=== PATIENT | female | born 1965 | race American Indian/Alaskan Native ===

== ENCOUNTER 2022-03-26 16:09 | Outpatient (CLI) | payer BC, MEDICAID, SELFPAY ==
[2022-03-26 16:38] LABS: Basophils # 0.1 10^3/uL (0.0-0.1); Basophils % 1.1 %; Eosinophils # 0.4 10^3/uL (0.0-0.8); Eosinophils % 6.9 %; Hematocrit 31.9 % (37.0-47.0); Hemoglobin 10.5 g/dL (11.5-15.3); Mean Corpuscular HGB Conc 32.9 g/dL (30.0-36.0); Mean Corpuscular Hemoglobin 29.7 pg (28.0-34.0); Mean Corpuscular Volume 90.4 fl (81-99); Mean Platelet Volume 11.3 fL (7.4-10.4); Monocytes # 0.5 10^3/uL (0.2-0.9); Monocytes % 8.2 %; Neutrophils # 3.14 10^3/uL (1.8-7.7); Neutrophils % 51.6 %; Nucleated Red Blood Cells % 0 %; Platelet Count 182 10^3/cmm (130-400); Red Blood Count 3.53 10^6/uL (4.1-5.3); Red Cell Distribution Width 13.2 % (12.1-15.1); White Blood Count 6.1 10^3/uL (4.0-10.0)
[2022-03-26 16:56] LABS: Alanine Aminotransferase 10 U/L (0-33); Albumin Level 4.3 g/dL (3.5-5.2); Alkaline Phosphatase 71 U/L (35-105); Anion Gap 15.7 (5-19); Aspartate Amino Transferase 15 U/L (0-32); Blood Urea Nitrogen 29 mg/dL (6-20); Calcium 9.4 mg/dL (8.5-10.5); Carbon Dioxide 24 mmol/L (22-29); Chloride 100 mmol/L (98-107); Globulin 2.8 g/dL (1.3-4.6); Glomerular Filtration Rate 33.3 mL/min (90-130); Glucose 96 mg/dL (65-115); Lipase 50 U/L (13-60); Osmolality Calculated 286 mOsm/kg (285-295); Potassium 4.7 mmol/L (3.5-5.1); Sodium 135 mmol/L (136-145); Total Bilirubin 0.2 mg/dL (0.15-1.2); Total Protein 7.1 g/dL (6.6-8.7)
== END 2022-03-26 16:10 | disposition home or self-care (01) ==
PROVIDERS: PCP Family Medicine; Visit Provider Family Medicine
DX: R10.9 Unspecified abdominal pain (principal)
CPT/HCPCS: 80053; 83690; 85025

== ENCOUNTER 2022-04-23 06:01 | Outpatient (CLI) | payer BC, MEDICAID, SELFPAY ==
--- NOTE | 2022-04-23 | US_ITS ---
WS: [id number] RIGHT UPPER QUADRANT ULTRASOUND HISTORY: RUQ PAIN COMPARISON: None available. Liver: 17.9 cm in length. Liver is top normal size. Normal vascularity. No mass or bile duct dilatati on. Portal Vein: Normal hepatopetal flow with monophasic waveform. Gallbladder: Normally distended gallbladder. The wall of the gallbladder is mildly echogenic but no s hadowing. Stones are present within the gallbladder. No evidence for acute pericholecystic fluid or w all thickening. Gallbladder wall measures 2 mm. CBD: 0.5 cm Pancreas: Normal size and echogenicity. Right kidney: 10.2 cm in length. Normal size and echogenicity. No hydronephrosis or mass. Aorta and IVC: Unremarkable abdominal aorta and IVC. No ascites. US/US abdomen limited [id number] IMPRESSION: 1. Cholelithiasis without evidence for acute cholecystitis. 2. No bile duct dilatation.
== END 2022-04-23 06:02 | disposition home or self-care (01) ==
LOC: RAD 06:02
PROVIDERS: PCP Family Medicine; Visit Provider Family Medicine
DX: R10.11 Right upper quadrant pain (principal); K80.20 Calculus of gallbladder without cholecystitis without obstruction
CPT/HCPCS: 76705

== ENCOUNTER 2022-05-28 05:42 | Day surgery (SDC) | payer BC, MEDICAID, SELFPAY ==
[2022-05-27 15:54] VITALS: BMI 29.7
[2022-05-28] VITALS (11 sets, daily range): BP systolic 122–165; BP diastolic 58–78; PULSE 66–98; RESP 14–24; TEMP 36.1–37.2; O2SAT 95–97; BMI 29.5
--- NOTE | 2022-05-28 06:08 | W.PM.OPSUD ---
Surgery/Procedure H&P Update DATE OF PROCEDURE: May 28, 2022 DATE H&P PERFORMED: 05/06/22 H&P UPDATE INFORMATION: I have reviewed H&P completed within last 30 days, I have examined patient prior to procedure and Changes to prior documentation as noted here CHANGES TO PREVIOUS DOCUMENTATION: Patient was kept on liquid protein diet and she did lose 5 to 6 pounds PREOP DIAGNOSIS: Symptomatic cholelithiasis PRIMARY INDICATION FOR PROCEDURE: The same PLANNED PROCEDURE: Operation Date: 05/28/22 07:00 Proposed Procedures p Laparoscopic Cholecystectomy 87004,K80.0(Not Applicable) - Adolfo Bach MD
[2022-05-28] MEDS: sodium chloride 0.9% 1,000 ML 30 ML IV (06:31)
[2022-05-28] MEDS: acetaminophen 1,000 MG/100 ML PIGGYBACK 400 MG IV (06:31)
[2022-05-28] MEDS: heparin 5,000 unit/mL INJ 1 mL 2000 UNIT SUBCUT (06:31)
[2022-05-28 06:35] LABS: Glucose Point of Care 113 mg/dL (70-110)
--- NOTE | 2022-05-28 06:40 | ANES.PREANE2 ---
Pre-Anesthetic Assessment Height/Weight: Height 1.68 m Weight 83.007 kg Temp Pulse Resp BP Pulse Ox O2 Del Method 98.9 F 66 14 122/73 96 05/28/22 06:09 05/28/22 06:09 05/28/22 06:09 05/28/22 06:09 05/28/22 06:09 05/28/22 06:13 Preop Diagnosis: Symptomatic cholelithiasis Operation Date: 05/28/22 07:00 Proposed Procedures p Laparoscopic Cholecystectomy 69750,K80.0(Not Applicable) - Adolfo Bach MD Familial anesthetic complications: None Was Beta Carlos taken within 24 hours: N/A Was Clonidine taken within 24 hours: N/A Last intake: Intake Last Liquid Date 05/27/22 Last Liquid Time 21:00 Last Solid Date 05/27/22 Last Solid Time 18:00 Social Tobacco and No alcohol Exam alert, oriented x 3, clear to auscultation bilaterally and regular rate & rhythm Airway Mallampati: Class I Dentition: partials CV/HEM Hypertension Hepatic fatty liver GI Gastroesophageal Reflux Disease (occassional) Metabolic Diabetes Mellitus and Hyperlipidemia Anesthetic Plan ASA status: 2 Anesthesia: General Risk of > 500 ml blood loss (7ml/kg in children): No Medications/Allergies Home Medications Medication Instructions Recorded Confirmed Last Taken Type alogliptin 25 mg tablet (Nesina) 25 mg PO DAILY 05/06/22 05/28/22 05/27/22 History amlodipine 10 mg tablet 10 mg PO DAILY 05/06/22 05/28/22 05/27/22 History aspirin 81 mg capsule 81 mg PO DAILY 05/06/22 05/27/22 05/13/22 History atorvastatin 20 mg tablet 20 mg PO DAILY 05/06/22 05/28/22 05/27/22 History calcium carbonate 600 mg-vitamin 1 tab PO DAILY 05/06/22 05/28/22 05/27/22 History D3 5 mcg (200 unit) tablet gabapentin 300 mg capsule 300 mg PO TID PRN Pain 05/06/22 05/28/22 05/27/22 History magnesium oxide 400 mg PO DAILY 05/06/22 05/28/22 05/27/22 History metformin 1,000 mg tablet 1,000 mg PO BID 05/06/22 05/28/22 05/27/22 History sertraline 100 mg tablet 100 mg PO DAILY 05/06/22 05/28/22 05/27/22 History trazodone 50 mg tablet 75 mg PO DAILY 05/06/22 05/28/22 05/27/22 History Allergies Allergy/AdvReac Type Severity Reaction Status Date / Time No Known Allergies Allergy Verified 05/27/22 15:51 Current Medications Generic Name Dose Route Start Last Admin Trade Name Freq PRN Reason Stop Dose Admin Sodium Chloride 1,000 mls @ 30 mls/hr 05/28/22 06:00 05/28/22 06:31 Sodium Chloride 0.9% IV 05/29/22 05:59 30 mls/hr .Q24H ARUN Administration PFSH Anesthesia Social History Smoking and tobacco status: current every day smoker Data Anesthesia Cardiac Studies: No Data to Display
[2022-05-28] MEDS: ampicillin-sulbactam 3 GM in sodium chloride 0.9% (plus) 50 ML IV (07:00)
[2022-05-28] MEDS: lidocaine 1% INJ 50 mL 10 ML INJECTION (07:25)
--- NOTE | 2022-05-28 08:49 | P.OP_ITS ---
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 Time-out was done verifying the patient's name/date of /planned procedure and destination after the procedure, all were in agreement. SCDs confirmed to be functioning, preoperative antibiotics administered per protocol, and beta shelly protocol was confirmed. Patient was appropriately secured to the table, footboard was applied to the OR table, before prep and drape anesthesia was asked to tilt the table back and forth to make sure that the patient is appropriately secured and she was. Prep and drape of the abdomen was done under the usual sterile technique, followed by that supraumbilical skin incision,skin incision was done by a 15 blade knife, and stay sutures were applied to the fascia and Blount trocar technique was used to enter the abdominal without injuring any abdominal viscera, started by low flow gas insufflation followed by a high flow, started with a 10 mm laparoscope and under direct vision there was no evidence of any injuries, the scope then switched to a 30? ,10 millimeter scope and under direct visualization 5 millimeter trocar was inserted in the epigastric region followed by two 5 mm trocars were inserted in the right upper quadrant that was done after injection of local lidocaine 2% at all incision sites. Gallbladder showed chronic calculus cholecystitis and Fatty enlarged Liver inspite of having the patient on liquid protein diet prior to Surgery. Patient was then positioned in the head up and tilted to the left. Ratcheted forceps were introduced into the lateral most 5mm port and was applied unto the fundus of the gallbladder cephalad and using Bullet forceps the infundibulum of the gallbladder was retracted laterally. Using [place] forceps then L-hook cautery to dissect the peritoneum overlying the Calot's triangle which was then opened medially and laterally until the cystic duct and the cystic artery were skeletonized. Dissection was carried along the body of the gallbladder and after ensuring critical view of safety was identfied. Cystic duct and cystic artery where seen connected to the gallbladder. Clips were applied on the cystic duct towards the common bile duct 1 towards the gallbladder then divided is in sharp scissors, 2 clips were then applied onto the cystic artery and 1 towards the gallbladder and divided by sharp scissors. I did appreciate some stones coming from the cystic duct stump that was flushed and prior to application of the clips I was able to milk any residues in the cystic duct. After application of the 5 mm clips seem that they are not crossing all the way so I elected to put Endoloop PDS x2. Without encroaching on the common bile duct. Dissection was then carried along of the gallbladder from the gallbladder fossa using cautery as well as sharp dissection with heat energy. The gallbladder then was dissected out from the gallbladder fossa totally , cholecystectomy was then achieved and was placed in an Endo Catch bag and then retrieved from the Blount trocar site under direct visualization using a 5 mm 30? scope through the epigastric trocar, specimen was then passed to the circu [place] [place] nurse to go for permanent pathology,irrigation and hemostasis was done to the gallbladder fossa after hemostasis was secured, and pieces of Surgicel were placed in the gallbladder fossa. Final survey laparoscopy was done that showed no injuries.Thorough and copious irrigation followed by suction was obtained. The supraumbilical fascial defect was then closed using interrupted number one P DS sutures using a fascial closure device ;Rick Jaramillo under direct visualization following that Gas was allowed to deflate,Trocars were then taken out under direct vision there was no evidence of bleeding. Specimen was passed to the circulating nurse for permanent pathology. No drains were placed and the supraumbilical incision as well as all trocar sites were closed using skin brian to approximate the skin edges of the incisions , dressing was applied in the form of Band-Aids and the patient patient got extubated and was taken to recovery area in a stable condition. Count of sponges,needles and instruments were completed at the end of the procedure I was present for the whole entire procedure.
[2022-05-28] MEDS: fentaNYL 50 mcg/mL INJ 2mL IVP (09:12)
[2022-05-28] MEDS: HYDROcodone-acetaminophen 5-325 mg Tablet 1 TAB PO (09:55)
--- NOTE | 2022-05-28 13:13 | ANE.PACU2 ---
Inpatient post-anesthesia follow up: Airway intact: Yes Vital signs: Temperature 97.4 F Pulse Rate 84 Respiratory Rate 18 Blood Pressure 149/68 Pulse Oximetry 96 Oxygen Delivery Me thod Room Air Oxygen Flow Rate Fraction of Inspir ed Oxygen Hydration adequate: Yes Nausea and vomiting: No Pain level: 1 Mental status: Baseline
== END 2022-05-28 10:18 | disposition home or self-care (01) ==
PROVIDERS: PCP Family Medicine; Visit Provider Surgery
PROC: 0FT44ZZ Resection of Gallbladder, Percutaneous Endoscopic Approach (ICD-10-PCS; CPT 47562; principal; 2022-05-28 07:00)
DX: K80.10 Calculus of gallbladder with chronic cholecystitis without obstruction (principal); K76.0 Fatty (change of) liver, not elsewhere classified; K21.9 Gastro-esophageal reflux disease without esophagitis; I10 Essential (primary) hypertension; E11.9 Type 2 diabetes mellitus without complications; E78.5 Hyperlipidemia, unspecified; Z79.82 Long term (current) use of aspirin; F17.210 Nicotine dependence, cigarettes, uncomplicated
CPT/HCPCS: 47562; 36416; 82962; 88304; J0131; J0295; J1100; J1644; J2405; J2704; J3010; J3490; J7030

== ENCOUNTER 2022-08-23 12:26 | Outpatient (CLI) | payer BC, MEDICAID, SELFPAY ==
--- NOTE | 2022-08-23 12:47 | MM_ITS ---
WS: [id number] BILATERAL 3D TOMOSYNTHESIS DIGITAL SCREENING MAMMOGRAPHY WITH CAD CLINICAL INFORMATION: screening HISTORY: Screening mammogram. No current complaints. COMPARISON: 2020 TECHNIQUE: Bilateral CC and MLO views. FINDINGS: Scattered fibroglandular densities bilaterally. Lucent centered calcifications RIGHT breast. Cluster s of calcifications in the outer LEFT breast some in a linear branching pattern. Recommend further ev aluation with spot magnification views. In addition, asymmetric density measuring 6 mm central LEFT breast along the posterior nipple line mi d depth appears more prominent compared to previous. This is best seen on the MLO view. Recommend spo t compression views and ultrasound if persistent. RIGHT breast is unremarkable. MM/[place] [id number] IMPRESSION: BI-RADS: 0-Incomplete: Need additional imaging evaluation FOLLOW UP: Need Additional Imaging Recommend spot magnification views outer LEFT breast calcifications. Recommend spot compression views LEFT breast central asymmetry and ultrasound i f persistent.
== END 2022-08-23 12:27 | disposition home or self-care (01) ==
PROVIDERS: PCP Nurse Practitioner Family; Visit Provider Nurse Practitioner Family
DX: Z12.31 Encounter for screening mammogram for malignant neoplasm of breast (principal)
CPT/HCPCS: 77063; 77067

== ENCOUNTER 2022-09-16 13:58 | Outpatient (CLI) | payer BC, MEDICAID, SELFPAY ==
--- NOTE | 2022-09-16 14:03 | MM_ITS ---
WS: [id number] LEFT 3D TOMOSYNTHESIS DIGITAL MAMMOGRAPHY WITH CAD CLINICAL INFORMATION: ABNORMAL MAMMO HISTORY: COMPARISON: None. TECHNIQUE: 3 views of the left breast were obtained. FINDINGS: Scattered fibroglandular densities of the left breast. Vascular calcification. Previously described s mall nodular density compresses out on the spot compression views. Clustered punctate calcifications outer LEFT breast are again seen. Spot magnification views obtained . Some of these appear to be vascular calcifications. Distribution is similar in appearance to October 31, 2020. Recommend 6 month follow-up LEFT breast diagnostic mammography with spot magnification view s. No other suspicious findings. MM/[place] [id number] IMPRESSION: BI-RADS: 3-Probably Benign FOLLOW UP: 6 Month Follow-up Recommend 6 month follow-up LEFT breast diagnostic mammography with spot magnif ication views of the outer breast calcifications.
== END 2022-09-16 13:59 | disposition home or self-care (01) ==
LOC: RAD 13:59
PROVIDERS: PCP Nurse Practitioner Family; Visit Provider Nurse Practitioner Family
DX: R92.8 Other abnormal and inconclusive findings on diagnostic imaging of breast (principal); R92.1 Mammographic calcification found on diagnostic imaging of breast
CPT/HCPCS: 77061; G0279

== ENCOUNTER 2023-04-03 07:36 | Outpatient (CLI) | payer BC, MEDICAID, SELFPAY ==
--- NOTE | 2023-04-03 | MM_ITS ---
WS: [id number] LEFT 3D TOMOSYNTHESIS DIGITAL MAMMOGRAPHY WITH CAD CLINICAL INFORMATION: 6m f/u calcs HISTORY: 6-month follow-up calcifications COMPARISON: 2022 TECHNIQUE: 3 views of the left breast were obtained. FINDINGS: Scattered fibroglandular densities of the left breast. Again seen are the clustered punctate calcific ations outer LEFT breast 7 a linear distribution. Some of these appear to represent vascular calcific ations as previously described. These are stable in appearance since 09/16/2022 and similar in appearance compared to 10/31/2020. Recomm end additional 6-month follow-up LEFT diagnostic mammography with spot magnification views at the penny e of annual screening to confirm stability. IMPRESSION: MM/[place] [id number] BI-RADS: 3-Probably Benign FOLLOW UP: 6 Month Follow-up
== END 2023-04-03 07:37 | disposition home or self-care (01) ==
PROVIDERS: PCP Nurse Practitioner Family; Visit Provider Nurse Practitioner Family
DX: R92.8 Other abnormal and inconclusive findings on diagnostic imaging of breast (principal); R92.1 Mammographic calcification found on diagnostic imaging of breast
CPT/HCPCS: 77061; G0279

== ENCOUNTER → 2023-06-24 08:45 | Outpatient (BNVA) | payer BC, MEDICAID, SELFPAY | PROVIDERS: PCP Nurse Practitioner Family; Visit Provider Podiatrist Foot & Ankle Surgery | DX: M25.872 Other specified joint disorders, left ankle and foot; M25.871 Other specified joint disorders, right ankle and foot; G57.63 Lesion of plantar nerve, bilateral lower limbs | CPT/HCPCS: 73630 ==

== ENCOUNTER 2023-07-07 13:48 | Outpatient (CLI) | payer BC, MEDICAID, SELFPAY ==
--- NOTE | 2023-07-07 14:15 | US_ITS ---
WS: [id number] INDICATION: Kaplan's neuroma TECHNIQUE: Bilateral foot ultrasound at the second metatarsal interspace. FINDINGS: Bilateral foot ultrasound focused to the second metatarsal interspace. Normal underlying so ft tissue. No evidence of cystic or solid lesion. No evidence of Kaplan's neuroma visualized. IMPRESSION: Normal ultrasound
== END 2023-07-07 13:49 | disposition home or self-care (01) ==
LOC: RAD 13:48
PROVIDERS: PCP Nurse Practitioner Family; Visit Provider Podiatrist Foot & Ankle Surgery
DX: M25.872 Other specified joint disorders, left ankle and foot (principal); M25.871 Other specified joint disorders, right ankle and foot; M79.671 Pain in right foot; M79.672 Pain in left foot; G57.63 Lesion of plantar nerve, bilateral lower limbs
CPT/HCPCS: 76882

== ENCOUNTER 2023-10-30 09:09 | Outpatient (CLI) | payer BC, MEDICAID, SELFPAY ==
--- NOTE | 2023-10-30 09:20 | MM_ITS ---
WS: [id number] BILATERAL 3D TOMOSYNTHESIS DIGITAL DIAGNOSTIC MAMMOGRAPHY WITH CAD CLINICAL INFORMATION: 6MFU LEFT CALCS HISTORY: 6-month follow-up LEFT calcifications. COMPARISON: 08/23/2022 TECHNIQUE: Bilateral CC, MLO, and ML views. FINDINGS: Scattered fibroglandular densities bilaterally. Again seen are the tiny clustered punctate calcificat ions outer LEFT breast unchanged compared to the prior recent examinations. These appear relatively s table since 10/31/2020. A few incidental punctate and lucent centered calcifications. Vascular calcifications. No other susp icious findings. No suspicious focal mass, asymmetry, calcifications, or architectural distortion. No evidence of whitney gnancy. IMPRESSION: MM/[place] [id number] BI-RADS: 3-Probably Benign FOLLOW UP: 6 Month Follow-up Recommend additional 6-month follow-up LEFT breast diagnostic mammography with spot magnification views to confirm stability.
== END 2023-10-30 09:10 | disposition home or self-care (01) ==
LOC: RAD 09:10
PROVIDERS: PCP Nurse Practitioner Family; Visit Provider Nurse Practitioner Family
DX: R92.8 Other abnormal and inconclusive findings on diagnostic imaging of breast (principal); R92.30 Dense breasts, unspecified
CPT/HCPCS: 77062; G0279

== ENCOUNTER 2024-05-13 08:45 | Outpatient (CLI) | payer BC, MEDICAID, SELFPAY ==
--- NOTE | 2024-05-13 08:49 | MM_ITS ---
WS: [id number] LEFT 3D TOMOSYNTHESIS DIGITAL MAMMOGRAPHY WITH CAD CLINICAL INFORMATION: ABNORMAL MAMMOGRAM, LEFT BREAST HISTORY: 6-month follow-up COMPARISON: 2023 TECHNIQUE: 3 views of the left breast were obtained. FINDINGS: Scattered fibroglandular densities of the left breast. Again seen are the tiny punctate cluster calci fications outer LEFT breast. These appear unchanged compared to recent examinations and and similar c ompared to 2020. Some of these may be vascular. Recommend spot magnification views of the calcificati ons at the time of next annual mammography in 6 months A few incidental punctate and lucent centered calcifications. Vascular calcifications. MM/MM diag LT tomosynthesis [id number] IMPRESSION: DENSITY: There are scattered areas of fibroglandular density. BI-RADS: 3 - Probably Benign. FOLLOW UP: 6 Month Follow-up Recommend LEFT breast spot magnification views of the calcifications at the penny e of next annual mammography in 6 months
== END 2024-05-13 08:46 | disposition home or self-care (01) ==
PROVIDERS: PCP Nurse Practitioner Family; Visit Provider Nurse Practitioner Family
DX: R92.8 Other abnormal and inconclusive findings on diagnostic imaging of breast (principal); R92.323 Mammographic fibroglandular density, bilateral breasts; R92.1 Mammographic calcification found on diagnostic imaging of breast
CPT/HCPCS: 77061; G0279

== ENCOUNTER 2024-08-31 07:36 | Outpatient (CLI) | payer BC, MEDICAID, SELFPAY ==
--- NOTE | 2024-08-31 07:45 | USCV_ITS ---
Savi Martinez Age: 57 Gender: F : 10/31/1966 Exam Date: 08/31/2024 07:56 Ordering Phys: Deniz Shaver M.D ([email or web address]) Technologist: Exam [place] [facility] [place]: cp BP: 120 / 70 HR: 60 Rhythm: Sinus Technical Quality: Adequate MEASUREMENTS (Male / Female) Normal Values 2D ECHO LV Diastolic Diameter PLAX 4.1 cm 4.2 - 5.9 / 3.9 - 5.3 cm IVS Diastolic Thickness 1.2 cm 0.6 - 1.0 / 0.6 - 0.9 cm IVS Systolic Thickness 1.5 cm LVPW Diastolic Thickness 1.4 cm 0.6 - 1.0 / 0.6 - 0.9 cm LVPW Systolic Thickness 1.1 cm LVOT Diameter 2.1 cm LV Ejection Fraction 2D Teich 69.4 % LV Ejection Fraction MOD 4C 65.6 % LV Ejection Fraction MOD 2C 68.2 % LV Ejection Fraction 2C AL 66.5 % LA Diameter 3.4 cm RA Systolic Volume 4C AL 29.7 ml RA Systolic Volume 4C MOD 28.3 ml LA Sys Volume AL 26.9 cm cubed LA Sys Volume Index AL 13.0 cm cubed/m squared Aorta at Sinotubular Diameter 2.9 cm IVC Diameter 2.3 cm M-MODE LA Ao Ratio MM 1.1 AV Cusp Separation MM 2.3 cm DOPPLER AV Peak Velocity 95.0 cm/s LVOT Peak Velocity 92.0 cm/s AV Area Cont Eq vti 3.8 cm squared AV Area Cont Eq pk 3.3 cm squared MV Area PHT 3.3 cm squared Mitral E to A Ratio 0.9 TR Peak Velocity 220.0 cm/s TR Peak Gradient 19.4 mmHg TV Peak E Velocity 192.0 cm/s PV Peak Velocity 101.0 cm/s FINDINGS Left Ventricle Left ventricle is normal in size. LV systolic function is normal with EF of 55-60%. No regional wall motion abnormalities. Grade 1 diastolic dysfunction Right Ventricle Normal in size and function Right Atrium Normal in size Left Atrium Normal in size Mitral Valve Structurally normal mitral valve. Aortic Valve Structurally normal aortic valve. No significant stenosis Tricuspid Valve Mild tricuspid regurgitation. Pulmonary artery systolic pressure is normal Pulmonic Valve Mild pulmonic regurgitation. Pericardium Normal Aorta Normal in size IVC Not well visualized CONCLUSIONS LV systolic function is normal with EF of 55-60% Grade 1 diastolic dysfunction Mild tricuspid regurgitation Mild pulmonic regurgitation. No comparison studies are available Deniz Shaver MD (Electronically Signed) Final Date: 03 September 2024 14:47 S
== END 2024-08-31 07:37 | disposition home or self-care (01) ==
PROVIDERS: PCP Nurse Practitioner Family; Visit Provider Internal Medicine
DX: I49.3 Ventricular premature depolarization (principal); I49.9 Cardiac arrhythmia, unspecified; I07.1 Rheumatic tricuspid insufficiency; R93.1 Abnormal findings on diagnostic imaging of heart and coronary circulation; I37.1 Nonrheumatic pulmonary valve insufficiency
CPT/HCPCS: 93306

== ENCOUNTER 2024-10-10 19:28 | Emergency (ER) | payer BC, MEDICAID, SELFPAY ==
[2024-10-10 20:07] VITALS: BP 166/84; PULSE 70; RESP 18; TEMP 36.6; O2SAT 98; BMI 32.3
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
== END 2024-10-10 22:00 | disposition home or self-care (01) ==
PROVIDERS: Emergency Provider Physician Assistant; PCP Nurse Practitioner Family
DX: M54.6 Pain in thoracic spine (principal); M25.562 Pain in left knee; M25.561 Pain in right knee; Z79.82 Long term (current) use of aspirin; E11.9 Type 2 diabetes mellitus without complications; E78.5 Hyperlipidemia, unspecified; I10 Essential (primary) hypertension
CPT/HCPCS: 72125; 72128; 99284

== ENCOUNTER 2024-11-25 08:52 | Outpatient (CLI) | payer BC, MEDICAID, SELFPAY ==
--- NOTE | 2024-11-25 08:58 | XR_ITS ---
WS: [id number] Right foot, AP and lateral views, 11/25/2024 Clinical Data: R FOOT PAIN Comparison: Bilateral feet, 06/24/2023 Findings: No fractures or dislocations are seen. No bone destruction or erosion is noted. The joint spaces and soft tissues are normal. There is a plantar spur. XR/XR foot RT 2V [id number] Impression: Negative right foot.
--- NOTE | 2024-11-25 08:58 | XR_ITS ---
WS: [id number] Left knee, 3 views, 11/25/2024 Clinical Data: LEFT KNEE PAIN Comparison: None. Findings: No new fractures or dislocations are seen. The joint spaces are normal. The patella is intact. The soft tissues are unremarkable. There is an old fracture of the proximal left fibula. XR/XR knee LT 3V* [id number] Impression: Negative left knee.
== END 2024-11-25 08:53 | disposition home or self-care (01) ==
PROVIDERS: PCP Nurse Practitioner Family; Visit Provider Nurse Practitioner Family
DX: M77.51 Other enthesopathy of right foot and ankle (principal); Z87.81 Personal history of (healed) traumatic fracture
CPT/HCPCS: 73562; 73620

== ENCOUNTER 2024-12-23 14:04 | Outpatient (CLI) | payer BC, MEDICAID, SELFPAY ==
--- NOTE | 2024-12-23 14:09 | MM_ITS ---
WS: [id number] LEFT 3D TOMOSYNTHESIS DIGITAL MAMMOGRAPHY WITH CAD CLINICAL INFORMATION: ABNORMAL L BREAST MAMMOGRAM HISTORY: Calcifications COMPARISON: 2023 TECHNIQUE: 3 views of the left breast were obtained. FINDINGS: Scattered fibroglandular densities of the left breast. Incidental punctate and lucent centered calcifications. Vascular calcifications. Tiny punctate cluster calcifications outer LEFT breast are unchanged. These are stable over multiple prior recent examinations dating back to 08/23/2022. No suspicious focal mass, asymmetry, calcifications, or architectural distortion. No evidence of malignancy. MM/MM diag LT tomosynthesis [id number] IMPRESSION: DENSITY: There are scattered areas of fibroglandular density. BI-RADS: 2 - Benign. FOLLOW UP: 1 Year Follow-up Recommend return to annual screening mammography.
== END 2024-12-23 14:05 | disposition home or self-care (01) ==
PROVIDERS: PCP Nurse Practitioner Family; Visit Provider Nurse Practitioner Family
DX: Z12.31 Encounter for screening mammogram for malignant neoplasm of breast (principal); R92.8 Other abnormal and inconclusive findings on diagnostic imaging of breast; R92.322 Mammographic fibroglandular density, left breast
CPT/HCPCS: 77061; G0279

== ENCOUNTER → 2025-01-24 14:54 | Outpatient (BNVA) | payer BC, MEDICAID, SELFPAY | PROVIDERS: PCP Nurse Practitioner Family; Referring Provider Nurse Practitioner Family; Visit Provider Orthopaedic Surgery | DX: M25.562 Pain in left knee (principal); G89.29 Other chronic pain | CPT/HCPCS: 73560; 73565 ==

== ENCOUNTER 2025-01-31 15:45 | Outpatient (CLI) | payer BC, MEDICAID, SELFPAY ==
--- NOTE | 2025-01-31 16:00 | MR_ITS ---
WS: [id number] MRI LEFT KNEE NONCONTRAST TECHNIQUE: Axial PD, coronal PD fat sat, coronal PD, sagittal PD, and sagittal PD fat-sat images obtained. CLINICAL INFORMATION: Left knee pain COMPARISON: None. FINDINGS: Moderate tricompartment arthritis. Distal quadriceps and patella tendons are intact. Small suprapatellar effusion. ACL and PCL are intact. Chronic thinning of the medial and lateral meniscus. Mild peripheral extrusion of the medial meniscus. No acute appearing meniscal tears. Chronic intrasubstance signal normality involving the medial meniscus. Joint space narrowing worse in the medial joint compartment. Grade III chondromalacia patella worse involving the lateral patellar facet with chondral fissuring. No subchondral edema. Normal popliteal fossa. Normal medial and lateral collateral ligaments. Normal popliteus. Normal bone marrow signal in the femoral condyles and tibial plateau. Normal fibular head. MR/MR knee LT wo con* [id number] IMPRESSION: 1. Moderate tricompartmental arthritis worse in the medial joint compartment. 2. Chronic thinning of the medial and lateral meniscus. No acute appearing men iscal tears visualized. Slight peripheral extrusion of the medial meniscus. 3. Grade III chondromalacia patella worse in the lateral patellar facet with c hondral fissuring. Small suprapatellar effusion. 4. Medial and lateral collateral ligaments appear intact. 5. ACL and PCL are intact. 6. No other acute findings. Outbridge grading: grade III: partial-thickness cartilage loss with focal ulcer ation
== END 2025-01-31 15:46 | disposition home or self-care (01) ==
LOC: RAD 15:46
PROVIDERS: PCP Nurse Practitioner Family; Visit Provider Orthopaedic Surgery
DX: M17.12 Unilateral primary osteoarthritis, left knee (principal); M22.42 Chondromalacia patellae, left knee
CPT/HCPCS: 73721

== ENCOUNTER 2025-05-11 12:03 | Day surgery (SDC) | payer BC, MEDICAID, SELFPAY ==
[2025-05-11] VITALS (10 sets, daily range): BP systolic 120–126; BP diastolic 39–70; PULSE 61–68; RESP 12–20; TEMP 36.7–36.9; O2SAT 98–100; BMI 26.6
--- NOTE | 2025-05-11 12:58 | ANES.PREANE2 ---
Pre-Anesthetic Assessment Height/Weight: Height 1.68 m Temp Pulse Resp BP Pulse Ox O2 Del Method 98.0 F 68 16 125/69 98 Room Air 05/11/25 12:33 05/11/25 12:33 05/11/25 12:33 05/11/25 12:33 05/11/25 12:33 05/11/25 12:36 Operation Date: 05/11/25 13:40 Proposed Procedures p LEFT Knee Arthroscopy w/ Meniscectomy(Left) - Antonio Shrestha MD Familial anesthetic complications: None Was Beta Carlos taken within 24 hours: N/A Was Clonidine taken within 24 hours: N/A Last intake: Intake Last Liquid Date 05/10/25 Last Liquid Time 23:30 Last Solid Date 05/10/25 Last Solid Time 14:00 Social Tobacco and No alcohol Exam alert, oriented x 3, clear to auscultation bilaterally and regular rate & rhythm Airway Mallampati: Class II Dentition: partials CV/HEM Arrythmia (PVCs) and Hypertension Hepatic fatty liver Metabolic Diabetes Mellitus Anesthetic Plan ASA status: 3 Anesthesia: General Risk of > 500 ml blood loss (7ml/kg in children): No Medications/Allergies Home Medications ?Medication ?Instructions ?Recorded ?Confirmed ?Last Taken ?Type aspirin 81 mg capsule 81 mg PO DAILY 05/06/22 05/10/25 05/02/25 History Held on 05/28/22. Instructions: Resume on 06/01/22. atorvastatin 20 mg tablet 20 mg PO DAILY 05/06/22 05/10/25 05/10/25 History magnesium oxide 400 mg PO DAILY 05/06/22 05/10/25 05/10/25 History sertraline 100 mg tablet 100 mg PO DAILY 05/06/22 05/10/25 05/10/25 History trazodone 50 mg tablet 75 mg PO DAILY 05/06/22 05/10/25 05/10/25 History gabapentin 300 mg capsule 400 mg PO TID PRN Pain 08/05/24 05/10/25 Unknown History losartan 50 mg tablet 50 mg PO DAILY 08/05/24 05/10/25 05/10/25 History omeprazole 20 mg capsule,delayed 20 mg PO DAILY PRN gerd 08/05/24 05/10/25 05/10/25 History release oxybutynin chloride 5 mg tablet 10 mg PO DAILY 08/05/24 05/10/25 05/10/25 History tirzepatide (weight loss) 5 mg/0.5 mg SUBCUT 03/08/25 03/08/25 05/02/25 History mL subcutaneous pen injector (Zepbound) Allergies Allergy/AdvReac Type Severity Reaction Status Date / Time cumin Allergy Unknown Verified 05/11/25 12:28 soap Allergy Unknown Verified 05/11/25 12:28 [facility] Anesthesia Medical History Hyperlipidemia Hypertension Type 2 diabetes mellitus Symptomatic cholelithiasis Social History Smoking and tobacco/nicotine status: current every day tobacco/nicotine user Data Anesthesia Cardiac Studies: Echocardiogram 08/31/24 Holter Monitor 03/22/24
--- NOTE | 2025-05-11 13:13 | W.PM.OPSUD ---
Surgery/Procedure H&P Update DATE OF PROCEDURE: May 11, 2025 DATE H&P PERFORMED: 03/08/25 H&P UPDATE INFORMATION: I have reviewed H&P completed within last 30 days, I have examined patient prior to procedure and No changes to prior documentation CHANGES TO PREVIOUS DOCUMENTATION: Patient's medical status is unchanged since original H&P. Heart and lungs are clear today No other abnormalities noted No new medication PREOP DIAGNOSIS: Internal derangement left knee PLANNED PROCEDURE: Operation Date: 05/11/25 13:40 Proposed Procedures p LEFT Knee Arthroscopy w/ Meniscectomy(Left) - Antonio Shrestha MD
[2025-05-11] MEDS: ceFAZolin 2,000 mg SDV 2000 MG IVP (13:31)
[2025-05-11] MEDS: BUPivacaine 0.5% INJ 30 mL INJECTION (14:09)
--- NOTE | 2025-05-11 14:33 | P.OP_ITS ---
Operative Report Date of procedure: May 11, 2025 Surgeon: Antonio Shrestha MD Procedure: Preoperative diagnosis: Internal derangement of the left knee Postoperative diagnosis: Grade I/II chondromalacia posterior patella and IT groo ve, grade II chondromalacia medial femoral condyle medial tibial plateau, degenerative tearing anterior and posterior horns medial meniscus. Grade I/II chondromalacia lateral femoral condyle Procedure: Left knee arthroscopy with partial medial meniscectomy and chondroplasty throughout the knee Surgeon: Antonio Shrestha MD Anesthesia: General Indications: Savi is a 58-year-old white female who was seen in the orthopedic clinic for debilitating left knee pain. Subsequently after workup was felt she had a medial meniscal tear and an MRI was obtained. MRI demonstrated degenerative changes of the medial meniscus both anteriorly and posteriorly with other degenerative changes on the articular cartilage throughout the knee. Therefore this time the patient having failed conservative measures and was offered a diagnostic knee arthroscopy with all indicated procedures. All risk benefits treatment terms were discussed and she was agreeable to this at this time. Procedure: After obtaining her consent patient was taken to the operating room placed the op table supine position general anesthetic administered. Once good anesthesia was achieved patient's left leg is placed in the leg maldonado and for the bed was dropped. Right leg was padded appropriately. Left leg is prepped and draped usual fashion. After surgical timeout standard anterior medial and lateral portals were made #11 blade camera cast placed the lateral portal. Initial tour of the knee posterior patella demonstrated grade I/II chondromalacia with central weightbearing surface and on towards the lateral facet. This was debrided down to stable cartilaginous base mechanical shaver. There is hypertrophic synovium throughout this. IT groove also demonstrated grade I/II chondromalacia in its main weightbearing area and this too is debris with mechanical shaver down to stable cartilage space. Medial gutter was clear medial compartment demonstrated a cleavage tear of the posterior horn medial meniscus this was debrided down to stable cartilaginous base mechanical shaver as well as small hand instruments. Grade II/III chondromalacia was identified on the medial femoral condyle medial tibial plateau this is debrided with mechanical shaver down to stable cartilaginous base. Anteriorly there is fraying and tearing and a degenerative fashion of the anterior horn medial meniscus and this is debrided with mechanical shaver down to stable cartilaginous space. Intercondylar notch demonstrated intact anterior cruciate ligament. Lateral compartment demonstrated grade I/II chondromalacia of the lateral femoral condyle. Probing of the meniscus demonstrated no tears no other abnormalities. Knee was then washed Cosamin sterile rogation and cannulas removed. Wounds were closed with 3-0 Prolene interrupted sutures. Wounds were injected with half percent Marcaine plain for postop pain management totaling 30 cc. Wounds were then cleaned and dry dressed with Xeroform gauze sterile gauze dressing sterile Curlex and Kirill wrap for compression. Patient was waken transferred to cover room stable condition
--- NOTE | 2025-05-11 15:40 | ANE.PACU2 ---
Inpatient post-anesthesia follow up: Airway intact: Yes Vital signs: Temperature 98.4 F Pulse Rate 64 Respiratory Rate 17 Blood Pressure 125/60 Pulse Oximetry 100 Oxygen Delivery Me thod Room Air Oxygen Flow Rate Fraction of Inspir ed Oxygen Hydration adequate: Yes Nausea and vomiting: No Pain level: 1 Mental status: Baseline
== END 2025-05-11 15:39 | disposition home or self-care (01) ==
PROVIDERS: PCP Nurse Practitioner Family; Visit Provider Orthopaedic Surgery
PROC: (CPT 29881; principal; 2025-05-11 13:40)
DX: M23.92 Unspecified internal derangement of left knee (principal); M94.262 Chondromalacia, left knee; S83.242A Other tear of medial meniscus, current injury, left knee, initial encounter; X58.XXXA Exposure to other specified factors, initial encounter; I49.9 Cardiac arrhythmia, unspecified; I10 Essential (primary) hypertension; E11.9 Type 2 diabetes mellitus without complications; Z79.82 Long term (current) use of aspirin; K21.9 Gastro-esophageal reflux disease without esophagitis; F17.200 Nicotine dependence, unspecified, uncomplicated
CPT/HCPCS: 29881; 36416; 82962; J0131; J0690; J1100; J2405; J2704; J3010; J3490; J7030; J9999